=== PATIENT | male | born 1945 | race Caucasian/White ===

== ENCOUNTER 2023-11-07 09:18 | Emergency (ER) | payer MEDICARE, SELFPAY ==
[2023-11-07] VITALS (9 sets, daily range): BP systolic 150–159; BP diastolic 80–110; PULSE 90–112; RESP 14–23; TEMP 36.2; O2SAT 92–97
--- NOTE | ~2023-11-07 | XR_ITS ---
XR hand RT 2V 11/07/2023 09:59 INDICATION: Erythema and swelling of the third finger PROCEDURE: 2 views right hand COMPARISON: No prior studies for comparison. FINDINGS: Fracture, dislocation or subluxation is not identified. The soft tissues appear within norm al limits. No foreign bodies are identified. There is a healed fifth metacarpal fracture. IMPRESSION: 1: NO ACUTE BONE OR JOINT ABNORMALITY IDENTIFIED. Reviewed, dictated and finalized at location A. [employer]
--- NOTE | 2023-11-07 09:47 | ED.GENADULT ---
HPI - General Adult General Chief complaint: Skin/Abscess/Foreign Body Stated complaint: forearm infection? Time Seen by Provider: 11/07/23 09:28 Source: patient Mode of arrival: ambulatory Limitations: no limitations History of Present Illness HPI narrative: This is a 78-year-old male with PMH of HTN who presents to the ED with chief complaint of redness, swelling right hand for the past couple of weeks. Reports that has been gradually increasing swelling. Reports amts-[id number] pain in the medial right hand along the metacarpal as well as the wrist area. Reports the redness has spread from the dorsum of the hand to the dorsal distal forearm. His daughter was concern for possible gout. He went to urgent care who was concerned for cellulitis but told him to come here for further evaluation. he has been working with refinishing cyst cast iron skillet and still and thinks that there may have been a piece of metal trap the skin. Denies fevers, chills, nausea, vomiting or other systemic signs or symptoms. No history of diabetes or other immunocompromised condition. Related Data Allergies Allergy/AdvReac Type Severity Reaction Status Date / Time No Known Allergies Allergy Mild Verified 11/07/23 09:59 Review of Systems Review of Systems: All systems as dictated in HPI Exam Narrative: GENERAL: Well-appearing, well-nourished, and in no acute distress. HEAD: Normocephalic, atraumatic. EYES: PERRLA and EOMI. ENT: Nares clear, no rhinorrhea or epistaxis. Mucous membranes moist. Oropharynx without tonsillar hypertrophy exudate or other lesions. NECK: Supple. No adenopathy or masses. CHEST: No respiratory distress. Clear to auscultation. No wheezes rales or rhonchi HEART: Regular rate and rhythm. No murmur heard. Normal peripheral pulses. ABDOMEN: Soft, nontender, nondistended, normal active bowel sounds. MSK: Right hand with full active and passive range of motion. No edema. Grossly negative [place] signs on the right hand. No involvement of the palmar side of the hand SKIN: right dorsal hand and distal 3rd of dorsal forearm with erythema and mild swelling. Minimal tenderness noted. No drainage. No palpable fluctuance or induration. Left hand benign. Skin exam otherwise intact NEURO: Alert and oriented x3. No focal deficits. PSYCH: Normal mood and affect. Course Vital Signs Vital signs: Vital Signs Temperature 97.2 F L 11/07/23 09:20 Pulse Rate 90 11/07/23 09:20 Respiratory Rate 16 11/07/23 09:20 Blood Pressure 150/110 H 11/07/23 09:20 Pulse Oximetry 95 11/07/23 09:20 Temperature 97.2 F L 11/07/23 09:20 Pulse Rate 90 11/07/23 09:20 Respiratory Rate 16 11/07/23 09:20 Blood Pressure 150/110 H 11/07/23 09:20 Pulse Oximetry 95 11/07/23 09:20 Medical Decision Making MDM Narrative Medical decision making narrative: This is a 78-year-old male who presents to the ED with chief complaint of erythema and swelling to the dorsum of the right hand for the past 1-2 weeks. Vitals are normal. Afebrile. No palmar involvement. lab work unremarkable. No leukocytosis. CRP normal. no acute middle compromising conditions. Symptoms are consistent with cellulitis. Low concern for allergic reaction or gout. No evidence of abscess on exam. stable for discharge home. Prescription for Keflex given. Return precautions given and supportive measures discussed. Pt is understanding and agreeable with plan for discharge and follow-up with PCP. Vital Signs Vital Signs: Vital Signs Temperature 97.2 F L 11/07/23 09:20 Pulse Rate 90 11/07/23 09:20 Respiratory Rate 16 11/07/23 09:20 Blood Pressure 150/110 H 11/07/23 09:20 Pulse Oximetry 95 11/07/23 09:20 Temperature 97.2 F L 11/07/23 09:20 Pulse Rate 90 11/07/23 09:20 Respiratory Rate 16 11/07/23 09:20 Blood Pressure 150/110 H 11/07/23 09:20 Pulse Oximetry 95 11/07/23 09:20 Discha
[2023-11-07 10:04] LABS: Basophils Percent Auto 0.4 % (0.2-1.2); Eosinophils Absolute Auto 0.1 K/mm3 (0-0.3); Eosinophils Percent Auto 1.2 % (0-4.4); Hematocrit 47.7 % (42.0-52.0); Immature Granulocyte Absolute 0.03 K/mm3 (0.00-0.031); Immature Granulocyte Percent A 0.3 % (0-0.5); Lymphocytes Absolute Auto 1.69 K/mm3 (0.9-3.2); Lymphocytes Percent Auto 17.8 % (18.3-44.2); Mean Corpuscular HGB Conc 33.5 g/dl (32-36); Mean Corpuscular Hemoglobin 31.3 pg (26-34); Mean Corpuscular Volume 93.3 fl (80-100); Mean Platelet Volume 9.4 fl (7.4-10.4); Monocytes Percent Auto 10.4 % (2.6-8.5); Neutrophils Absolute Auto 6.7 K/mm3 (1.3-6.7); Neutrophils Percent Auto 69.9 % (45.5-73.1); Platelet Count Result 278 k/mm3 (150-375); Red Blood Count 5.11 M/mm3 (4.6-6.20); Red Cell Distribution Width 14.5 % (11.5-14.5); White Blood Count 9.5 K/mm3 (4.5-10.0)
[2023-11-07] MEDS: ACETAMINOPHEN 325 MG TABLET 650 MG PO (10:06)
[2023-11-07 10:21] LABS: Alanine Aminotransferase 29 U/L (6-50); Albumin Level 4.6 g/dL (3.5-5.1); Alkaline Phosphatase 91 U/L (38-126); Anion Gap 8 mmol/L (8-16); Aspartate Amino Transferase 28 U/L (17-59); Bilirubin,Total 0.9 mg/dL (0.2-1.3); Blood Urea Nitrogen 10 mg/dL (9-20); CRP 0.7 mg/dL (<1.0); Calcium 9.3 mg/dL (8.4-10.2); Carbon Dioxide 26 mmol/L (22-30); Chloride 107 mmol/L (98-107); Estimated CRCL calculation 62 ml/min; Estimated Glomerular Filt Rate > 60; Glucose 120 mg/dL (65-110); Potassium 3.6 mmol/L (3.4-5.0); Sodium 141 mmol/L (137-145)
== END 2023-11-07 10:32 | disposition home or self-care (01) ==
PROVIDERS: Emergency Provider Physician Assistant; PCP Emergency Medicine
DX: L03.113 Cellulitis of right upper limb (principal); I10 Essential (primary) hypertension
CPT/HCPCS: 36415; 73120; 80053; 85025; 86140; 99283; A9270